=== PATIENT | male | born 1990 | race African-American/Black ===

== ENCOUNTER 2023-03-02 17:26 | Emergency (ER) | payer OTHER, SELFPAY ==
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
[2023-03-02 17:28] VITALS: BP 144/84; PULSE 92; RESP 17; TEMP 36.9; O2SAT 100
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
[2023-03-02] MEDS: IBUPROFEN 600 MG TABLET PO (20:02)
== END 2023-03-02 22:01 | disposition home or self-care (01) ==
PROVIDERS: Emergency Provider Physician Assistant
DX: S80.02XA Contusion of left knee, initial encounter (principal); V79.9XXA Bus occupant (driver) (passenger) injured in unspecified traffic accident, initial encounter
CPT/HCPCS: 73564; 99283; A9270